=== PATIENT | female | born 1960 | race Caucasian/White ===

== ENCOUNTER 2017-06-05 11:48 | Observation (INO) | payer OTHER ==
[~2017-06-05] VITALS: Ht 162.6 cm; Wt 75.0 kg
[2017-06-05] VITALS (7 sets, daily range): BP systolic 104–149; BP diastolic 61–92; PULSE 70–95; RESP 14–20; O2SAT 94–100
[~2017-06-05 11:48] MED LIST: FLUT9.9S NS; HYDR-4003 PO; LEVO175T29 PO; ZONI50CA3 PO
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
[2017-06-05] MEDS ORDERED: 0.9% Sodium Chloride 1,000 ML IV ONE (13:18)
[2017-06-05] MEDS ORDERED: Ondansetron 2 mg/mL 2 mL Inj IVPUSH PRN ×2 (13:20→15:50)
[2017-06-05] MEDS: HYDROmorphone 1 mg/mL Inj IVPUSH PRN ×2 (13:45→14:50)
[2017-06-05 13:54] LABS: BASOPHILS % (AUTO) 0.2 % (0-3); EOSINOPHILS % (AUTO) 0.2 % (0-5); MONOCYTES % (AUTO) 4.8 % (4-12); Mean Corpuscular Hemoglobin 31.3 pg (27.0-35.0); Mean Corpuscular Volume 92.4 fL (81-100); NEUTROPHILS % (AUTO) 85.5 % (40-74); Platelet Count 388 bil/L (150-400)
[2017-06-05] MEDS ORDERED: Famotidine Inj 20 MG in IV Premix 1 EACH IV ONE (14:05)
[2017-06-05] MEDS ORDERED: MethylprednisoLONE Sodium Succinate 62.5 mg/mL 2 mL Inj IVPUSH ONE (14:05)
--- NOTE | 2017-06-05 14:11 | DRSVH ---
PROCEDURE: CT CERVICAL SPINE WITHOUT CONTRAST ([id number]) INDICATIONS: trauma TECHNIQUE: Noncontrast 3 mm thick sections acquired from the skull base to the T4 level. Sagittal and coronal r eformats were then constructed. For radiation dose reduction, the following was used: automated exp osure control, adjustment of mA and/or kV according to patient size. COMPARISON: Cervical spine 07/30/2013; MRI cervical spine 08/12/2010 FINDINGS: Image quality: Excellent. Bones: Fracture of the right clavicle is partially visualized. No cervical fracture seen. There is st raightening of cervical lordosis which may be positional or related to muscle spasm. No malalignment. Multilevel degenerative disc disease and spondylosis C3-C7. Visualized superior ribs are intact. Soft tissues: Prevertebral soft tissues are normal in thickness. No paravertebral hematomas. No ap ical pneumothoraces. IMPRESSION: 1. Loss of cervical lordosis. 2. Multilevel degenerative cervical disc disease and spondylosis. 3. Fracture right clavicle partially visualized. No cervical fracture seen. Dictated by: Damien Mistry M.D. on 06/05/2017 at 14:05 Approved by: Damien Mistry M.D. on 06/05/2017 at 14:09
[2017-06-05 14:13] LABS: INR 0.9 ratio
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
--- NOTE | 2017-06-05 14:53 | DRSVH ---
PROCEDURE: X-RAY RIGHT ANKLE, MINIMUM THREE VIEWS ([id number]) INDICATIONS: trauma TECHNIQUE: 3 views of the ankle were acquired. COMPARISON: None. FINDINGS: Bones: There is a minimally displaced fracture in the lateral malleolus inferiorly. There is also a linear lucency within the medial malleolus seen on the AP view suspicious for a nondisplaced fractur e. Ankle mortise is normally aligned. There is a lucency also noted at the base of the 1st metatars al suspicious for a nondisplaced fracture. Soft tissues: There is soft tissue swelling over the lateral malleolus. No tibiotalar joint effusion . Achilles tendon appears intact. IMPRESSION: 1. Minimally displaced fracture of the lateral malleolus. 2. Possible nondisplaced fractures of the medial malleolus and base of the 1st metatarsal. Further evaluation may be obtained with CT or a repeat study in 7-10 days. Dictated by: Hermes Alcantara M.D. on 06/05/2017 at 14:48 Approved by: Hermes Alcantara M.D. on 06/05/2017 at 14:52
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
[2017-06-05] MEDS ORDERED: Polyethylene Glycol (PEG) 17 Gm Powder PO ONE (15:50)
[2017-06-05] MEDS ORDERED: diphenhydrAMINE 25 mg Capsule PO PRN (15:50)
[2017-06-05] MEDS ORDERED: HYDROmorphone 1 mg/mL Inj IVPUSH PRN (16:00)
[2017-06-05 16:16] LABS: APPEARANCE,URINE CLEAR (CLEAR,HAZY); COLOR,URINE YELLOW (YELLOW); OCCULT BLOOD,URINE TRACE (NEGATIVE)
[2017-06-05 16:17] LABS: UROBILINOGEN,URINE NORMAL (NORMAL)
[2017-06-05] MEDS ORDERED: FLUT9.9S NS (16:26)
[2017-06-05] MEDS ORDERED: LEVO75TA4 PO (16:30)
--- NOTE | 2017-06-05 18:03 | NUR ---
Admit from ER patient arrived to unit approx 1740 via ER bed. admit and med Req done in ER. per pain assessment pain 3/10 to right ankle, right thigh,back and neck when patient moved from ER bed to bed side commode. offered PRN pain medication and states," i will let you know when i need it." Phone paged Dr. Corrales and notified r/t right thigh pain which patient describes as numbness, no new orders received. per Dr. Antoni GATES will see patient today. Ice pack applied to right thigh and patient is eating dinner with out swallowing difficulty. Denies chest pain or chest discomfort. No sign and symptoms of respiratory discomfort or rib pain noted. no cough, abdominal pain, nausea or vomiting reported by patient. last BM today per patient. spouse at bed side. Stable BP and pulse. Temp 99.0. Stable oxygen RA. Sling to right arm due to clavicle fracture and right ankle splint. continue to monitor.
--- NOTE | 2017-06-05 18:42 | NUR ---
Nicotine patch patch placement left upper arm.
[2017-06-06 04:03] VITALS: BP 114/67; PULSE 91; RESP 18; O2SAT 96
[2017-06-06 05:30] LABS: Mean Corpuscular Hemoglobin 31.3 pg (27.0-35.0); Mean Corpuscular Volume 92.7 fL (81-100)
--- NOTE | 2017-06-06 05:49 | NUR ---
Pain, Activity, Febrile: Pt has been medicated for pain to the neck, right arm, back, and occasionally the right ankle, about every 4 hours through the night. Medication has been effective and allows pt to sleep for a while. Getting up to the BSC with minimal assist, right arm in sling. NWB to right leg. Reports the numbness/tingling to the anterior right thigh has decreased, but is not gone. Right foot warm, able to wiggle toes, sensation intact to foot and right hand. Dr. Parker was called last evening, stated he will be coming in this morning. Pt was febrile at 38.[address] Corrales was notified and ordered Tylenol. No Tylenol was administered per pt request. Was afebrile the remainder of the night.
[2017-06-06 08:05] VITALS: BP 112/66; PULSE 86; RESP 18; O2SAT 94
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
--- NOTE | 2017-06-06 11:02 | NUR ---
Evaluation completed. Please go to "Notes" then click on "Assessments and Notes" (bottom left corner of screen). Then select appropriate discipline tab on top of screen.
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
--- NOTE | 2017-06-06 11:34 | PCM.DISURG ---
Surgical Discharge Instruction Date of Service Jun 06, 2017 Dates of Hospitalization Date of Hospital Admission Jun 05, 2017 at 16:29 Providers Admitting Physician: Rocco Corrales MD Primary Care Physician: Tin Ames MD Attending Physician: Rocco Corrales MD Discharge Diagnosis Discharge Diagnosis 1. Minimally displaced fracture of the lateral malleolus. 2. Possible nondisplaced fractures of the medial malleolus and base of the 1st metatarsal. 3. Minimally displaced fractures of the right ribs, #4, 5 and 6. Diet Discharge Diet: No restrictions Activity Discharge Activity-General: Try not to overdue, Balance rest and activity, Other (Use cane with left hand or scooter for ambulation. Ice rib fracture pain sites as needed for 30 minutes every 2 hours.) Dressing and Incisional Care Hygiene: May shower Additional Instructions Discharge Instructions Follow up with Orthopedics in approximately 1 week. Additional Instructions Do not take more than 3000 mg of tylenol per day. Tylenol is in the prescribed percocet pain medication at 325mg per tablet. Follow Up Plan Follow-up appointment: Weeks (1) Jean Pierre Gamez PA-C Jun 06, 2017 11:34 Activity Discharge Activity-General: Try not to overdue, Balance rest and activity, Other (Use cane with left hand or scooter for ambulation. Ice rib fracture pain sites as needed for 30 minutes every 2 hours.) Dressing and Incisional Care Hygiene: May shower Additional Instructions Discharge Instructions Follow up with Orthopedics in approximately 1 week. Additional Instructions Do not take more than 3000 mg of tylenol per day. Tylenol is in the prescribed percocet pain medication at 325mg per tablet. Follow Up Plan Follow-up appointment: Weeks (1) Jean Pierre Gamez PA-C Jun 06, 2017 11:34
[2017-06-06] MEDS ORDERED: OXYC-465 PO (11:39)
--- NOTE | 2017-06-06 12:46 | NUR ---
Discharge Reviewed discharge paperwork, care notes and medications with pt and -disclaimer signed. Appt set up for F/U with DR Parker. Ankle boot in place, PT evaluated and instructions given to pt. IV DCd intact and all belongings with pt. Pt reports rib pain from fracture, premedicated for ride home. Escorted out of unit in WC, driving home.
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
--- NOTE | 2017-06-06 15:35 | NUR ---
Rx Neeru, pharmacist from [facility] called to verify d/c Rx. This RN called Jurgen Gamez and asked if new Rx needed to be filled since pt p/u PCP Rx on 05/23 (112 tab [place] 5-325) Jenifer Gamez asked for new Rx NOT to be filled. Message relayed to Pharmacist. Addendum: 06/06/17 at 1628 by SANDEE ALANIZ RN Pt called the unit, asking for new Rx to go through. Pt stated that although [place] 5-325 was poorly effective but pt still takes them. This RN called ordering physician back, relaying the message and recd confirmation to go ahead and fill the Rx from today's discharge. Pharmacy and pt were both called regarding the change.
--- NOTE | 2017-06-06 17:00 | DRSVH ---
PROCEDURE: X-RAY CHEST, TWO VIEWS ([id number]) INDICATIONS: pneumothorax TECHNIQUE: 2 views of the chest were acquired. COMPARISON: [facility], CR, XR CHEST 1VW (PORTABLE), 06/05/2017, 14:18. FINDINGS: Surgical changes and devices: None. Lungs and pleura: No pleural effusions or pneumothorax. Lungs are clear. Mediastinum: Mediastinal contours are normal. Heart size is normal. Bones and chest wall: Multiple right posterior-lateral fractures redemonstrated as well as comminuted distal right clavicular shaft fracture. IMPRESSION: 1. Multiple mildly displaced right posterior-lateral fractures redemonstrated in no appreciable right pneumothorax is seen. 2. Comminuted distal right clavicular shaft fracture redemonstrated. Dictated by: Best DAVIS Interpreted: Vandana Saab MD on 06/06/2017 at 8:47 Approved by: Vandana Saab M.D. on 06/06/2017 at 16:58
== END 2017-06-06 12:20 | disposition home or self-care (01) ==
LOC: SED 11:48 → MPC 16:29
PROVIDERS: ADMIT Surgery; ATTEND Surgery
DX: S22.41XA Multiple fractures of ribs, right side, initial encounter for closed fracture (principal); S42.021A Displaced fracture of shaft of right clavicle, initial encounter for closed fracture; S82.61XA Displaced fracture of lateral malleolus of right fibula, initial encounter for closed fracture; V28.0XXA Motorcycle driver injured in noncollision transport accident in nontraffic accident, initial encounter; Y93.I9 Activity, other involving external motion
CPT/HCPCS: 36415; 71010; 71020; 71260; 72125; 72170; 73551; 73610; 74177; 80053; 81001; 85025; 85027; 85610; 85730; 86850; 93005; 96361; 96374; 96375; 97161; 99285; G0480; J1170; J1200; J2405; J2930; J3490; J7030; Q9967